=== PATIENT | male | born 1950 | race Caucasian/White ===

== ENCOUNTER 2016-10-12 08:40 | Inpatient (IN) | payer MEDICARE ==
[~2016-10-12] VITALS: Ht 180.3 cm; Wt 100.4 kg
[~2016-10-12 08:40] MED LIST: BENA5TAB26 PO; DIVA500T69 PO; OLAN10TA3 PO; VENL-68 PO
[2016-10-12] MEDS ORDERED: CLON1 PO (08:55)
[2016-10-12] MEDS ORDERED: LITH300C3 PO (08:55)
[2016-10-12] MEDS ORDERED: DiphenhydrAMINE HCL 50 MG/ML VIAL IM ONE (09:15)
[2016-10-12] MEDS ORDERED: HALOPERIDOL LACTATE 5 MG/ML VIAL IM ONE (09:15)
[2016-10-12 09:30] LABS: BASOPHILS % (AUTO) 1.1 % (0.0-2.0); EOSINOPHILS % (AUTO) 0 % (1.0-6.0); HEMOGLOBIN 12.4 g/dL (13.5-17.5); LYMPHOCYTES # (AUTO) 1.7 K/uL (1.0-4.8); LYMPHOCYTES % (AUTO) 18.2 % (22.0-44.0); MEAN CORPUSCULAR HEMOGLOBIN 28.2 pg (26.0-34.0); MEAN CORPUSCULAR HGB CONC 32.6 G/dL (31.0-37.0); MEAN CORPUSCULAR VOLUME 86 fL (80-100); MONOCYTES # (AUTO) 0.6 K/uL (0.1-1.0); MONOCYTES % (AUTO) 6.8 % (2.0-9.0); NEUTROPHILS # (AUTO) 6.9 K/uL (1.8-7.7); NEUTROPHILS % (AUTO) 73.9 % (40.0-70.0); PLATELET COUNT (AUTO) 246 K/uL (150-450); RED BLOOD CELL COUNT(AUTO) 4.41 MIL/uL (4.50-5.90); RED CELL DISTRIBUTION WIDTH 14.3 % (11.5-14.5); WHITE BLOOD COUNT (AUTO) 9.3 K/uL (4.5-11.0)
[2016-10-12 09:45] LABS: ANION GAP 14 mmol/L (8-16); CARBON DIOXIDE 23 mmol/L (22-29); CHLORIDE 101 mmol/L (98-107); GLOMERULAR FILTR. RATE CALC 41 mL/min (>60); POTASSIUM 3.6 mmol/L (3.5-5.1); SODIUM SERUM 138 mmol/L (136-145); UREA NITROGEN, BLOOD 19 mg/dL (7-18)
[2016-10-12 09:49] LABS: ALANINE AMINOTRANSFERASE 21 U/L (12-78); ALBUMIN 3.8 g/dL (3.4-5.0); ASPARTATE AMINOTRANSFERASE 31 U/L (15-37); BILIRUBIN,TOTAL 0.7 mg/dL (0.1-1.0); TOTAL PROTEIN, SERUM 7.2 g/dL (6.4-8.2)
[2016-10-12 10:03] LABS: LITHIUM < 0.20 mmol/L (0.60-1.20)
[2016-10-12] MEDS ORDERED: ZOLPIDEM TARTRATE 10 MG TABLET PO PRN (10:15)
[2016-10-12 13:35] VITALS: BP 115/69
[2016-10-12] MEDS: LORazepam 2 MG TABLET PO PRN (13:54)
[2016-10-12] MEDS: HALOPERIDOL 5 MG TABLET PO PRN (13:54)
[2016-10-12 16:00] VITALS: BP 104/66
[2016-10-13 02:08] VITALS: BP 105/70
[2016-10-13] MEDS: HALOPERIDOL 5 MG TABLET PO PRN (04:47)
[2016-10-13] MEDS: LORazepam 2 MG TABLET PO PRN (04:47)
[2016-10-13] MEDS ORDERED: IBUPROFEN 400 MG TABLET PO PRN (07:30)
[2016-10-13] MEDS ORDERED: ACETAMINOPHEN 325 MG TABLET PO PRN (07:30)
[2016-10-13 08:06] VITALS: BP 136/88
[2016-10-13] MEDS: DIVALPROEX SODIUM 500 MG DR TABLET PO SCH ×2 (12:12→20:52)
[2016-10-13] MEDS: NICOTINE 21 MG/24 HOUR PATCH TD SCH (13:24)
[2016-10-13 16:11] VITALS: BP 121/71
[2016-10-13] MEDS: FERROUS SULFATE 325 MG EC TABLET PO SCH (16:39)
[2016-10-13] MEDS: OLANZapine 10 MG TABLET PO SCH (20:52)
[2016-10-14 02:47] VITALS: BP 127/84
[2016-10-14] MEDS: FERROUS SULFATE 325 MG EC TABLET PO SCH ×2 (06:22→16:59)
[2016-10-14 08:13] LABS: HEMOGLOBIN A1C 5.2 % (4.5-6.2)
[2016-10-14] MEDS: NICOTINE 21 MG/24 HOUR PATCH TD SCH (08:14)
[2016-10-14] MEDS: LORazepam 2 MG TABLET PO PRN ×2 (08:15→16:59)
[2016-10-14] MEDS: DIVALPROEX SODIUM 500 MG DR TABLET PO SCH ×2 (08:15→20:26)
[2016-10-14 08:24] VITALS: BP 130/60
[2016-10-14 08:32] LABS: CHOL/HDL RATIO 2.3 (4.2-7.3); THYROID STIMULATING HORMONE 1.51 uIU/mL (0.36-3.74)
[2016-10-14 16:00] VITALS: BP 140/88
[2016-10-14] MEDS: HALOPERIDOL 5 MG TABLET PO PRN (17:00)
[2016-10-14] MEDS: OLANZapine 10 MG TABLET PO SCH (20:26)
[2016-10-15 03:16] VITALS: BP 132/83
[2016-10-15] MEDS: FERROUS SULFATE 325 MG EC TABLET PO SCH (06:33)
[2016-10-15 08:07] VITALS: BP 130/80
[2016-10-15] MEDS: NICOTINE 21 MG/24 HOUR PATCH TD SCH (08:26)
[2016-10-15] MEDS: DIVALPROEX SODIUM 500 MG DR TABLET PO SCH (08:26)
[2016-10-15] MEDS ORDERED: DIVA500T35 PO (11:55)
[2016-10-15] MEDS ORDERED: FERR-89 PO (11:55)
[2016-10-15] MEDS ORDERED: OLAN10TA3 PO (11:55)
== END 2016-10-15 13:20 | disposition home or self-care (01) | DRG 885 ==
LOC: EEVIPCON 08:40 → EMS 08:43 → B3A 11:40
DX: F31.2 Bipolar disorder, current episode manic severe with psychotic features (principal); D64.9 Anemia, unspecified; E11.22 Type 2 diabetes mellitus with diabetic chronic kidney disease; F17.200 Nicotine dependence, unspecified, uncomplicated; I12.9 Hypertensive chronic kidney disease with stage 1 through stage 4 chronic kidney disease, or unspecified chronic kidney disease; K21.9 Gastro-esophageal reflux disease without esophagitis; N18.3 Chronic kidney disease, stage 3 (moderate); F19.10 Other psychoactive substance abuse, uncomplicated; Z91.14 Patient's other noncompliance with medication regimen; Z91.5 Personal history of self-harm; Z71.6 Tobacco abuse counseling; Z78.9 Other specified health status; Z88.8 Allergy status to other drugs, medicaments and biological substances; Z79.899 Other long term (current) drug therapy
CPT/HCPCS: 83036; 84443; 96372; 99291; A0429; G0480; J1200; J1630

== ENCOUNTER 2017-02-07 05:10 | Emergency (ER) | payer MEDICARE ==
[~2017-02-07] VITALS: Ht 182.9 cm; Wt 100.0 kg
[~2017-02-07 05:10] MED LIST changes: -BENA5TAB26 PO; +DIVA500T35 PO; -DIVA500T69 PO; +FERR-89 PO; -VENL-68 PO
[2017-02-07 05:58] LABS: BASOPHILS # (AUTO) 0.02 K/uL (0.00-0.20); BASOPHILS % (AUTO) 0.3 % (0.0-2.0); EOSINOPHILS # (AUTO) 0.18 K/uL (0.00-0.70); HEMATOCRIT 35.1 % (41-53); HEMOGLOBIN 11.5 g/dL (13.5-17.5); LYMPHOCYTES % (AUTO) 36.6 % (22.0-44.0); MEAN CORPUSCULAR HEMOGLOBIN 28.1 pg (26.0-34.0); MEAN CORPUSCULAR HGB CONC 32.8 G/dL (31.0-37.0); MEAN CORPUSCULAR VOLUME 86 fL (80-100); MONOCYTES # (AUTO) 0.6 K/uL (0.1-1.0); MONOCYTES % (AUTO) 10.6 % (2.0-9.0); NEUTROPHILS # (AUTO) 2.7 K/uL (1.8-7.7); NEUTROPHILS % (AUTO) 49.2 % (40.0-70.0); PLATELET COUNT (AUTO) 281 K/uL (150-450); RED CELL DISTRIBUTION WIDTH 15.8 % (11.5-14.5); WHITE BLOOD COUNT (AUTO) 5.5 K/uL (4.5-11.0)
[2017-02-07 06:02] LABS: ANION GAP 7 mmol/L (8-16); CALCIUM, TOTAL 8.3 mg/dL (8.8-10.5); CARBON DIOXIDE 31 mmol/L (22-29); CHLORIDE 105 mmol/L (98-107); CREATININE 0.99 mg/dL (0.60-1.30); GLOMERULAR FILTR. RATE CALC > 60 mL/min (>60); POTASSIUM 3.8 mmol/L (3.5-5.1); SODIUM SERUM 143 mmol/L (136-145); UREA NITROGEN, BLOOD 9 mg/dL (7-18)
[2017-02-07 06:08] LABS: ALANINE AMINOTRANSFERASE 22 U/L (12-78); ALBUMIN 2.7 g/dL (3.4-5.0); ASPARTATE AMINOTRANSFERASE 14 U/L (15-37); BILIRUBIN,TOTAL 0.2 mg/dL (0.1-1.0); TOTAL PROTEIN, SERUM 6.4 g/dL (6.4-8.2)
[2017-02-07 06:44] LABS: LITHIUM < 0.20 mmol/L (0.60-1.20)
[2017-02-07] MEDS ORDERED: IPRATROPIUM BROMIDE 0.5 MG/2.5 ML NEB SOLUTION NEB ONE (07:00)
[2017-02-07] MEDS ORDERED: ALBUTEROL SULFATE HFA 90 MCG/PUFF 8 GM INHALER IH ONE (07:00)
[2017-02-07] MEDS ORDERED: ALBUTEROL SULFATE 2.5 MG/0.5 ML NEB SOLUTION NEB ONE (07:00)
[2017-02-07 08:30] VITALS: BP 128/78
== END 2017-02-07 08:31 | disposition home or self-care (01) ==
LOC: EMS 05:12
DX: J98.01 Acute bronchospasm (principal); I10 Essential (primary) hypertension; F17.200 Nicotine dependence, unspecified, uncomplicated; Z88.8 Allergy status to other drugs, medicaments and biological substances
CPT/HCPCS: 36415; 80053; 80178; 80307; 85025; 94640; 99284; G0480; J3535

== ENCOUNTER 2019-03-31 17:38 | Inpatient (IN) | payer MEDICARE ==
[~2019-03-31] VITALS: Ht 167.6 cm; Wt 80.5 kg
[~2019-03-31 17:38] MED LIST changes: +DIVA-78 PO; -DIVA500T35 PO
[2019-03-31] MEDS ORDERED: CLOZ25TA4 PO (18:28)
[2019-03-31] MEDS ORDERED: TRAZ-252 PO (18:28)
[2019-03-31] MEDS ORDERED: HALOPERIDOL 5 MG TABLET PO PRN (20:00)
[2019-03-31] MEDS ORDERED: LORazepam 2 MG TABLET PO PRN (20:00)
[2019-03-31 20:48] VITALS: BP 142/70
[2019-03-31 21:23] VITALS: BP 124/69
[2019-03-31] MEDS ORDERED: CloNIDine HCL 0.1 MG TABLET PO PRN (21:30)
[2019-03-31] MEDS ORDERED: NICOTINE 14 MG/24 HOUR PATCH TD PRN (21:30)
[2019-03-31] MEDS ORDERED: MAG HYDROX/AL HYDROX/SIMETH ES 30 ML SUSPENSION UDCUP PO PRN (21:30)
[2019-03-31] MEDS ORDERED: DOCUSATE SODIUM 100 MG CAPSULE PO PRN (21:30)
[2019-03-31] MEDS ORDERED: LOPERAMIDE HCL 2 MG CAPSULE PO PRN (21:30)
[2019-03-31] MEDS ORDERED: ALBUTEROL SULFATE HFA 90 MCG/PUFF 8 GM INHALER IH PRN (21:30)
[2019-03-31] MEDS ORDERED: GuaiFENesin/D-METHORPHAN [SUGAR-FREE] 200-20MG/10 ML SYRUP UDCUP PO PRN (21:30)
[2019-03-31] MEDS ORDERED: PETROLATUM,WHITE 28 GM JELLY TP PRN (21:30)
[2019-03-31] MEDS ORDERED: IBUPROFEN 400 MG TABLET PO PRN (21:30)
[2019-03-31] MEDS ORDERED: ONDANSETRON HCL 4 MG TABLET PO PRN (21:30)
[2019-03-31] MEDS ORDERED: ACETAMINOPHEN 325 MG TABLET PO PRN (21:30)
[2019-03-31] MEDS ORDERED: MAGNESIUM HYDROXIDE SUSPENSION 30 ML UDCUP PO PRN (21:30)
[2019-03-31] MEDS ORDERED: PNEUMOCOCCAL VACCINE POLYVALENT 0.5 ML VIAL [PPSV23] IM ONE (21:45)
[2019-04-01 04:37] VITALS: BP 129/78
[2019-04-01 08:19] LABS: BASOPHILS % (AUTO) 0.4 % (0.0-2.0); EOSINOPHILS % (AUTO) 1.5 % (1.0-6.0); HEMOGLOBIN 12.7 g/dL (13.5-17.5); LYMPHOCYTES # (AUTO) 2.9 K/uL (1.0-4.8); LYMPHOCYTES % (AUTO) 28.1 % (22.0-44.0); MEAN CORPUSCULAR HEMOGLOBIN 29.6 pg (26.0-34.0); MEAN CORPUSCULAR HGB CONC 33.5 G/dL (31.0-37.0); MEAN CORPUSCULAR VOLUME 88 fL (80-100); MONOCYTES # (AUTO) 0.6 K/uL (0.1-1.0); MONOCYTES % (AUTO) 5.4 % (2.0-9.0); NEUTROPHILS # (AUTO) 6.7 K/uL (1.8-7.7); NEUTROPHILS % (AUTO) 64.6 % (40.0-70.0); PLATELET COUNT (AUTO) 197 K/uL (150-450); RED CELL DISTRIBUTION WIDTH 13.5 % (11.5-14.5)
[2019-04-01 08:22] LABS: HEMOGLOBIN A1C 5.1 % (4.5-6.2)
[2019-04-01 08:46] LABS: ALANINE AMINOTRANSFERASE 17 U/L (12-78); ALBUMIN 3.1 g/dL (3.4-5.0); ALKALINE PHOSPHATASE 70 U/L (46-116); ANION GAP 9 mmol/L (8-16); ASPARTATE AMINOTRANSFERASE 13 U/L (15-37); BILIRUBIN,TOTAL 0.4 mg/dL (0.1-1.0); CARBON DIOXIDE 25 mmol/L (22-29); CHLORIDE 106 mmol/L (98-107); CHOL/HDL RATIO 2.6 (4.2-7.3); CHOLESTEROL 114 mg/dL (131-200); CREATININE 1.03 mg/dL (0.60-1.30); FREE T4 (FREE THYROXINE) 1.15 ng/dL (0.76-1.46); GLOMERULAR FILTR. RATE CALC > 60 mL/min (>60); GLUCOSE,RANDOM 91 mg/dL (70-110); HDL CHOLESTEROL 44 mg/dL (40-60); LDL CHOL (CALC.) 54 mg/dL (0-130); POTASSIUM 4.6 mmol/L (3.5-5.1); SODIUM SERUM 140 mmol/L (136-145); TRIGLYCERIDES 80 mg/dL (15-150)
[2019-04-01 08:55] LABS: UREA NITROGEN, BLOOD 28 mg/dL (7-18)
[2019-04-01 09:22] VITALS: BP 113/62
[2019-04-01] MEDS: DIVALPROEX SODIUM 500 MG DR TABLET PO SCH ×2 (12:19→20:35)
[2019-04-01 16:00] VITALS: BP 103/72
[2019-04-01] MEDS: OLANZapine 10 MG TABLET PO SCH (20:35)
[2019-04-01] MEDS: ZOLPIDEM TARTRATE 10 MG TABLET PO PRN (22:18)
[2019-04-02 06:49] VITALS: BP 114/68
[2019-04-02] MEDS: DIVALPROEX SODIUM 500 MG DR TABLET PO SCH ×2 (08:06→20:12)
[2019-04-02 08:50] VITALS: BP 130/73
[2019-04-02 08:51] VITALS: BP 130/73
[2019-04-02 10:27] VITALS: BP 130/73
[2019-04-02 16:04] VITALS: BP 114/69
[2019-04-02] MEDS: OLANZapine 10 MG TABLET PO SCH (20:12)
[2019-04-02] MEDS: ZOLPIDEM TARTRATE 10 MG TABLET PO PRN (20:12)
[2019-04-03 06:41] VITALS: BP 112/78
[2019-04-03] MEDS: DIVALPROEX SODIUM 500 MG DR TABLET PO SCH (08:00)
[2019-04-03 08:23] VITALS: BP 138/79
[2019-04-03] MEDS ORDERED: OLAN10TA20 PO (08:44)
[2019-04-03] MEDS ORDERED: DIVA-78 PO (08:44)
== END 2019-04-03 13:55 | disposition home or self-care (01) | DRG 885 ==
LOC: B3A 19:32
DX: F31.4 Bipolar disorder, current episode depressed, severe, without psychotic features (principal); I13.0 Hypertensive heart and chronic kidney disease with heart failure and stage 1 through stage 4 chronic kidney disease, or unspecified chronic kidney disease; R45.851 Suicidal ideations; F10.10 Alcohol abuse, uncomplicated; D64.9 Anemia, unspecified; I50.9 Heart failure, unspecified; F19.10 Other psychoactive substance abuse, uncomplicated; N18.9 Chronic kidney disease, unspecified; Z91.5 Personal history of self-harm; Z79.899 Other long term (current) drug therapy; Z71.41 Alcohol abuse counseling and surveillance of alcoholic; Z71.51 Drug abuse counseling and surveillance of drug abuser
CPT/HCPCS: 83036; 84439; 84443; 87081